=== PATIENT | male | born 1945 | race Caucasian/White ===

== ENCOUNTER 2022-01-18 11:27 | Emergency (ER) | payer MEDICARE, OTHER, SELFPAY ==
[2022-01-18 11:35] VITALS: BP 151/95; PULSE 765; RESP 18; TEMP 36.7; O2SAT 98
--- NOTE | 2022-01-18 11:55 | W.ED.GENAD ---
Discharge Plan Disposition Patient Disposition: HOME Condition: Stable Discharge Details Clinical Impression: Impacted cerumen of both ears Primary Care Provider: None,None ED Provider: Trevon Nava Discharge Instructions Instructions: Impactaci?n de Cerumen (ED) Additional Instructions: Continue routine care for your hearing aids. Follow-up with audiology for recheck. Return for any acute concerns. Medical Decision Making 76-year-old male presents with loss of hearing in both ears over 2 days time. 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 On exam the cerumen impaction is confirmed. The patient was irrigated by nursing staff with improvement. HPI General Date/Time Provider Initiated Documentation: 01/18/22 11:53. Limitations to Documentation: no limitations. Information obtained by: patient. History of Present Illness 76 year old M presents to the emergency department with the chief complaint of Bilateral diminished hearing, described as mild, Quality is described as constant, and is localized to the head, left and right. Patient reports no radiation. and it has been constant. No relieving factors improve symptom(s), No exacerbating factors reported . Patient notes denies headaches. Patient did receive the following treatments prior to arrival, none General Stated Complaint: EarProblem SHAI: 4 Review of Systems Narrative: No other illness. 6 systems were reviewed and otherwise negative PFSH All Active Problems (Updated 01/18/22 @ 12:05 by Trevon Nava MD) Impacted cerumen of both ears (Acute) Social History Smoking risk assessment performed?: No Exam Narrative Exam Narrative: GEN: awake, alert, oriented 3. Pleasant, well groomed, interactive. HEAD: Normocephalic, atraumatic ENT: Mucous membranes moist, oropharynx unremarkable, tympanic membranes occluded with cerumen bilaterally, external ear exam unremarkable EYES: PERRL, EOMI NECK: Full ROM, no LEE, no menigismus CHEST/RESP: No respiratory distress EXT: Full ROM, no edema, no rash Neuro: Grossly normal neurologic exam, conversant, interactive. Psych: Speech fluent, thoughts congruent, affect normal Course Vital Signs Vital signs: Vital Signs Temperature 36.7 C 01/18/22 11:35 Pulse 765 H 01/18/22 11:35 Respiratory Rate 18 07/02/22 11:35 Blood Pressure 151/95 H 01/18/22 11:35 Pulse Oximetry 98 01/18/22 11:35 Temperature 36.7 C 01/18/22 11:35 Temperature Source Temporal Artery Scan 01/18/22 11:35 Pulse 765 H 01/18/22 11:35 Respiratory Rate 18 01/18/22 11:35 Blood Pressure 151/95 H 01/18/22 11:35 Blood Pressure Position Sitting 01/18/22 11:35 Pulse Oximetry 98 01/18/22 11:35 Oxygen Delivery Method Room Air 01/18/22 11:35 Oxygen Flow Rate 0 01/18/22 11:35 Pain Level 0 01/18/22 11:35
[2022-01-18 12:15] VITALS: BP 148/75; PULSE 74; RESP 18; TEMP 36.1; O2SAT 98
== END 2022-01-18 12:24 | disposition home or self-care (01) ==
PROVIDERS: Emergency Provider Emergency Medicine
DX: H61.23 Impacted cerumen, bilateral (principal); H93.293 Other abnormal auditory perceptions, bilateral
CPT/HCPCS: 99281; 99282